=== PATIENT | male | born 1995 | race Caucasian/White ===

== ENCOUNTER 2020-12-26 11:58 | Emergency (ER) | payer OTHER ==
[2020-12-26 12:21] LABS: RAPID STREP SCREEN Negative (Negative)
--- NOTE | 2020-12-26 12:50 | ED Physician Documentation ---
PD HPI HEENT - Stated complaint Stated Complaint: SORE THROAT - Chief complaint Chief Complaint: Heent - History obtained from History obtained from: Patient - Additional information Additional information: 25-year-old otherwise healthy male became acutely sick yesterday with bad sore throat, shaking chills and fevers. He also has myalgias. He has been fully immunized against both Covid and flu. He noted white spots on his tonsils today. No sick contacts. He does not know if he if he has ever had mono. Review of Systems Constitutional: reports: Fever, Chills Ears: reports: Reviewed and negative Nose: denies: Rhinorrhea / runny nose Respiratory: denies: Dyspnea, Cough PD PAST MEDICAL HISTORY - Allergies Allergies/Adverse Reactions: Allergies Allergy/AdvReac Type Severity Reaction Status Date / Time No Known Drug Allergies Allergy Verified 12/26/20 12:03 PD ED PE NORMAL - Vitals Vital signs reviewed: Yes - General General: Alert and oriented X 3, No acute distress - HEENT HEENT: Other (He has exudative tonsillitis but no obvious adenopathy, supple neck) - Respiratory Respiratory: No respiratory distress, Clear bilaterally - Abdomen Abdomen: Non tender - Derm Derm: No rash - Neuro Neuro: Alert and oriented X 3, Normal speech Results - Vitals Vitals: Vital Signs - 24 hr 12/26/20 12:03 Temperature 39.3 C H Heart Rate 118 H Respiratory 16 Rate Blood Pressure 113/66 O2 Saturation 96 Oxygen O2 Source Room air - Labs Labs: Laboratory Tests 12/26/20 12/26/20 12:08 13:08 Infectious [place] Assay NEGATIVE Group A Strep Rapid Negative PD MEDICAL DECISION MAKING - ED course ED course: 25-year-old gentleman with high fever and exudative tonsillitis. Rapid strep negative but suspect false negative given very high Centor score. Was checked for mono and negative for same. Administered IM penicillin G benzathine 1,200,000 units here. Departure - Departure Disposition: 01 Home, Self Care Clinical Impression: Pharyngitis Qualifiers: Pharyngitis/tonsillitis etiology: unspecified etiology Qualified Code(s): J02.9 - Acute pharyngitis, unspecified Condition: Good Record reviewed to determine appropriate education?: Yes Instructions: ED Strep Pharyngitis Poss Comments: In addition to ibuprofen/Advil you can take Chloraseptic, spray for numbing [id number] as recommended on the box. Return for new or worsening symptoms. Follow-up with your doctor in a few days if not improved. Forms: Activity restrictions
[2020-12-26 13:18] LABS: INFECTIOUS MONONUCLEOSIS NEGATIVE (Negative)
[2020-12-26] MEDS ORDERED: PENICILLIN G BENZATHINE 600,000 UNIT/ML SYRINGE IM ONE (13:36)
[2020-12-26] MEDS: PENICILLIN G BENZATHINE 600,000 UNIT/ML SYRINGE IM STA (13:38)
[2020-12-26 14:06] VITALS: BP 130/70
== END 2020-12-26 14:05 | disposition home or self-care (01) ==
LOC: ED 11:58
DX: J03.90 Acute tonsillitis, unspecified (principal)
CPT/HCPCS: 36415; 86308; 87070; 87077; 87430; 96372; 99282; 99283